=== PATIENT | male | born 1975 | race Caucasian/White ===

== ENCOUNTER 2024-07-16 06:46 | Day surgery (SDC) | payer BC ==
[2024-07-16] MEDS ORDERED: Midazolam 1 MG/ML 2 ML SDV ONE (07:05)
[2024-07-16] MEDS ORDERED: fentaNYL 100 MCG/2 ML SDV ONE (07:05)
[2024-07-16] MEDS ORDERED: Propofol 200 MG/20 ML SDV ONE ×2 (07:05→07:55)
[2024-07-16] MEDS: Lactated Ringers 1,000 ML IV SCH (07:33)
== END 2024-07-16 09:05 | disposition home or self-care (01) ==
LOC: JP.SDS 06:46
PROVIDERS: ATTEND Surgery
DX: Z12.11 Encounter for screening for malignant neoplasm of colon (principal); D12.5 Benign neoplasm of sigmoid colon; Z80.0 Family history of malignant neoplasm of digestive organs; F17.200 Nicotine dependence, unspecified, uncomplicated
CPT/HCPCS: 00811; 45385; 88305; J2250; J2704; J3010; J7120

== ENCOUNTER 2025-01-18 11:26 | Emergency (ER) | payer BC | END 2025-01-18 12:46 | disposition home or self-care (01) | LOC: JP.ED 11:26 | DX: B02.9 Zoster without complications (principal); F17.200 Nicotine dependence, unspecified, uncomplicated; Z79.899 Other long term (current) drug therapy | CPT/HCPCS: 99283 ==